=== PATIENT | male | born 1960 | race Caucasian/White ===

== ENCOUNTER → 2019-12-22 14:25 | Outpatient (CLI) | payer OTHER, SELFPAY | PROVIDERS: Visit Provider Surgery | DX: Z20.828 Contact with and (suspected) exposure to other viral communicable diseases (principal) | CPT/HCPCS: 87635; C9803; J7120; U0003 ==

== ENCOUNTER 2020-09-12 05:22 | Day surgery (SDC) | payer OTHER, SELFPAY ==
[2020-09-09 05:58] VITALS: BP 121/72; PULSE 63; RESP 16; TEMP 36.2; O2SAT 97; BMI 29.8
--- NOTE | 2020-09-09 06:09 | SUR.PREOP ---
tap water enema given pt. took 1/4 of enema. went to bathroom brown cloudy with 1 piece of formed stool. Pt. back to room and rest of enema ghiven.
--- NOTE | 2020-09-09 06:26 | PCM.PN.BLA ---
Progress Note Bowel prep and adequate. The patient will be rescheduled. Rubin An M.D., F.A.C.S.
--- NOTE | 2020-09-11 | COLBX_PTH ---
PATIENT: ALBERTO CASON LOC: EN U#:[id number] AGE/SX: 60/M ROOM: RE09/12/[address]: Dr. Rubin An MD : 1960 BED: DIS: 09/12/2020 SPEC #: [id number] RECD: 09/12/20 07:56 STATUS: ISMAEL PEREZMitchell #: [id number] JAMIL: 09/11/20 00:[address]: Rubin An DEPT: SURGICAL PATHOLOGY RECD BY: Avila Ramirez ENTERED: 09/12/20 08:05 SP TYPE: COLON BX OTHR DR: No Primary Care Phys Tissues: Rectum, NOS Procedures: Surgery Specimen Level IV HEADER OPERATION: Colonoscopy ? open access (MOD) PRE-OP DIAGNOSIS: Screening TISSUE SUBMITTED: Proximal rectum polyp MICROSCOPIC DIAGNOSIS Proximal rectal polyp, biopsy: Tubular adenoma. AM:meka 09/13/2020 MICROSCOPIC DESCRIPTION Slides are reviewed. GROSS DESCRIPTION Received in fixative is one container labeled with the patient's name and designated proximal rectum polyp. The specimen consists of multiple irregular fragments of light clemente soft tissue that in aggregate measure 1 x 0.5 x 0.2 cm. The specimen is totally submitted in one cassette. / SJ:meka 09/12/20 TC:5 CPT: 47213
[2020-09-12] VITALS (9 sets, daily range): BP systolic 117–145; BP diastolic 70–97; PULSE 46–50; RESP 14–16; TEMP 36.3–36.5; O2SAT 93–100; BMI 29.2
[2020-09-12] MEDS: Lactated Ringers 1,000 ML 100 ML IV (05:30)
[2020-09-12] MEDS: Midazolam 5 MG/ML Syringe (06:10)
--- NOTE | 2020-09-12 06:13 | PCM.HP.STD ---
HPI - General HPI Narrative ALBERTO CASON, is a 60 M who presentsFor screening colonoscopy. He presents via open access. He had actually presented 3 days ago but the bowel prep was completely inadequate. He returns after a secondary bowel prep with a report that it is improved. FOR[facility]LY [facility] Medical History High cholesterol Non-smoker Home Medications sodium,potassium,mag sulfates 17.5 gram-3.13 gram-1.6 gram oral soln See Rx Instructions PO .COMPLEX #354 ml 09/09/20 [Rx Last Taken Unknown] Allergy/AdvReac Type Severity Reaction Status Date / Time No Known Allergies Allergy Verified 09/12/20 05:31 Surgical History (Updated 09/05/20 @ 10:33 by Ella Michael) Hx of appendectomy Hx of hernia repair Hx of oral surgery Hx of tonsillectomy Social History Smoking Status: Never smoker ROS Constitutional Constitutional: Reports systems reviewed and no addt'l complaints, except as documented Cardiovascular Cardiovascular: Denies chest pain Respiratory/Chest Respiratory/Chest: Denies shortness of breath at rest Gastrointestinal Gastrointestinal: Denies abdominal pain, change in bowel habits, hematochezia or melena Vital Signs Vital Signs Vital Signs: 09/12/20 05:46 Temperature 97.7 F L Temperature Source Temporal Pulse Rate 50 L Respiratory Rate 16 Respiratory Pattern Normal Blood Pressure 123/72 H Blood Pressure Mean 89 Blood Pressure Source Monitor Blood Pressure Position Semi-Fowlers Blood Pressure Location Right Arm Pulse Ox 94 Oxygen Delivery Method Room Air Weight Weight: 227 lb 15.327 oz Body Mass Index (BMI) 29.2 Physical Exam Const alert, oriented x3 and no apparent distress General Appearance: cooperative and comfortable Eyes General Eye: normal appearance of both eyes Neck General: normal visual inspection Chest inspection of chest normal Resp Effort and Inspection: able to speak in complete sentences and symmetric chest movement Auscultation: clear to auscultation bilaterally Cardio regular rate and regular rhythm GI soft to palpation, non-tender and non-distended Extremity no calf tenderness Neuro oriented x3 Psych thought process normal Assessment & Plan Assessment/Plan (1) Screening for intestinal cancer: PLAN: I recommend to the patient a screening colonoscopy with possible biopsy or polypectomy as indicated. He is aware of the technique, benefit, risk, alternatives. He has had an opportunity to ask and have questions answered. He presents via open access. We will proceed as noted. Rubin An M.D., F.A.C.S.
--- NOTE | 2020-09-12 06:54 | OP.CCLET_ITS ---
09/12/2020 No Primary Care Physician Re : Colonoscopy procedure for Flakito Jarvis Dear Care Physician This procedure was performed on August. My impressions and recommendations are as follows: Impressions : - Hemorrhoids found on perianal exam. - One 8 mm polyp in the proximal rectum, removed with a hot snare. Resected and retrieved. - Diverticulosis in the sigmoid colon. - Tortuous colon. Recommendations : - Discharge patient to home. - Resume previous diet. - Continue present medications. - Repeat colonoscopy in 5 years for surveillance based on pathology results. - Telephone my office for pathology results in 1 week. My findings are described in the full procedure note, which is enclosed. If I can be of further assistance, please feel free to contact me at Doctor phone number(s): Work: . Sincerely, Rubin An MD 09/12/2020 6:54:10 AM This report has been signed electronically.
--- NOTE | 2020-09-12 06:54 | OP.COLON_ITS ---
Patient Name: Flakito Jarvis Procedure Date: 09/12/2020 6:08 AM Date of : 1960 Age: 60 Procedure: Colonoscopy Indications: Screening for colorectal malignant neoplasm Providers: Rubin An MD Referring MD: No Primary Care Physician Medicines: Midazolam 5 mg IV, Meperidine 100 mg IV Patient Profile: Last Colonoscopy: none. The patient's first colonoscopy is today. Complications: No immediate complications. Procedure: Pre-Anesthesia Assessment: - Prior to the procedure, a History and Physical was performed, and patient medications and allergies were reviewed. The patient's tolerance of previous anesthesia was also reviewed. The risks and benefits of the procedure and the sedation options and risks were discussed with the patient. All questions were answered, and informed consent was obtained. Prior Anticoagulants: The patient has taken no previous anticoagulant or antiplatelet agents. ASA Grade Assessment: I - A normal, healthy patient. After reviewing the risks and benefits, the patient was deemed in satisfactory condition to undergo the procedure. After I obtained informed consent, the scope was passed under direct vision. Throughout the procedure, the patient's blood pressure, pulse, and oxygen saturations were monitored continuously. The colonoscope was introduced through the anus and advanced to the cecum, identified by appendiceal orifice and ileocecal valve. The colonoscopy was somewhat difficult due to a tortuous colon. Successful completion of the procedure was aided by increasing the dose of sedation medication. The patient tolerated the procedure well. The quality of the bowel preparation was good. The ileocecal valve and the appendiceal orifice were photographed. Moderate Sedation: Moderate (conscious) sedation was personally administered by the endoscopist. The following parameters were monitored: oxygen saturation, heart rate, blood pressure, and response to care. Total physician intraservice time was 18 minutes. Scope In: 6:28:27 AM Scope Withdrawal Time 0 hours 9 minutes 19 seconds Scope Out: 6:48:24 AM Total Procedure Duration Time 0 hours 19 minutes 57 seconds Findings: Hemorrhoids were found on perianal exam. The digital rectal exam was normal. Pertinent negatives include normal prostate (size, shape, and consistency). A 8 mm polyp was found in the rectum. The polyp was semi-sessile. The polyp was removed with a hot snare. Resection and retrieval were complete. Scattered diverticula were found in the sigmoid colon. The colon (entire examined portion) was moderately tortuous. Advancing the scope required changing the patient to a supine position and using manual pressure. Impression: - Hemorrhoids found on perianal exam. - One 8 mm polyp in the proximal rectum, removed with a hot snare. Resected and retrieved. - Diverticulosis in the sigmoid colon. - Tortuous colon. Recommendation: - Discharge patient to home. - Resume previous diet. - Continue present medications. - Repeat colonoscopy in 5 years for surveillance based on pathology results. - Telephone my office for pathology results in 1 week. Procedure Code(s): --- Professional --- 91134, Colonoscopy, flexible; with removal of tumor(s), polyp(s), or other lesion(s) by snare technique 22045, 59, Moderate sedation services provided by the same physician or other qualified health rn critical care performing the diagnostic or therapeutic service that the sedation supports, requiring the presence of an independent trained observer to assist in the monitoring of the patient's level of consciousness and physiological status; initial 15 minutes of intraservice time, patient age 5 years or older Diagnosis Code(s): --- Professional --- Z12.11, Encounter for screening for malignant neoplasm of colon K64.9, Unspecified hemorrhoids K62.1, Rectal polyp K57.30, Diverticulosis of large intestine without perforation or abscess without bleeding Q43.8, Other specified congenital malformations of intestine CPT copyright 2017 [employer]. All rights reserved. The codes documented in this report are preliminary and upon death surveys coder review may be revised to meet current compliance requirements. Rubin An MD 09/12/2020 6:54:10 AM This report has been signed electronically. Number of Addenda: 0 Note Initiated On: 09/12/2020 6:08 AM
--- NOTE | 2020-09-12 07:55 | SUR.PHASEII ---
Discharge instruction discussed at length with patient and in Phase 2. All questions answered. Dr. An did explain instructions at the bedside in PACU with as well.
== END 2020-09-12 08:02 | disposition home or self-care (01) ==
LOC: EN 05:22 → AC 05:23
PROVIDERS: Visit Provider Surgery
PROC: 0DJD8ZZ Inspection of Lower Intestinal Tract, Via Natural or Artificial Opening Endoscopic (ICD-10-PCS; CPT 45378; principal; 2020-09-12 06:25)
DX: Z12.11 Encounter for screening for malignant neoplasm of colon (principal); D12.8 Benign neoplasm of rectum; K64.9 Unspecified hemorrhoids; K57.30 Diverticulosis of large intestine without perforation or abscess without bleeding; Z20.822 Contact with and (suspected) exposure to COVID-19
CPT/HCPCS: 45385; 87426; 88305; 99152; 99153; C9803; J7120